=== PATIENT | female | born 1990 | race Hispanic/Latino ===

== ENCOUNTER 2018-03-06 22:17 | Emergency (ER) | payer OTHER ==
[2018-03-06 22:27] VITALS: BMI 25.0
[2018-03-06 22:29] VITALS: BP 123/81; PULSE 81; RESP 16; TEMP 97.7; O2SAT 100
--- NOTE | 2018-03-06 23:25 | ED PDOC ---
HPI: Female Pain Time Seen by Provider: 03/06/18 23:23 Chief Complaint (Nursing): Female Genitourinary Chief Complaint (Provider): vaginal spotting History Per: Patient (28 y/o female M1 here with crampy abd pain/vaginal spotting today. Patient has h/o miscarriage few months prior and is concerned for the same. Denies any dysuria/hematuria/urinary frequency.) Past Medical History Reviewed: Historical Data, Nursing Documentation, Vital Signs Vital Signs: Last Vital Signs Temp 97.7 F 03/06/18 22:27 Pulse 81 03/06/18 22:27 Resp 16 03/06/18 22:27 BP 123/81 03/06/18 22:27 Pulse Ox 100 03/06/18 22:27 - Family History Family History: States: No Known Family Hx - Allergies Allergies/Adverse Reactions: Allergies Allergy/AdvReac Type Severity Reaction Status Date / Time No Known Allergies Allergy Verified 03/06/18 22:26 Review of Systems ROS Statement: Except As Marked, All Systems Reviewed And Found Negative Genitourinary Female: Positive for: Vaginal Bleeding Physical Exam - Reviewed Nursing Documentation Reviewed: Yes Vital Signs Reviewed: Yes - Physical Exam Appears: Positive for: Well, Non-toxic, No Acute Distress Head Exam: Positive for: ATRAUMATIC, NORMAL INSPECTION, NORMOCEPHALIC Skin: Positive for: Normal Color, Warm, DRY Eye Exam: Positive for: EOMI, Normal appearance, PERRL ENT: Positive for: Normal ENT Inspection Neck: Positive for: Normal, Painless ROM Cardiovascular/Chest: Positive for: Regular Rate, Rhythm Respiratory: Positive for: CNT, Normal Breath Sounds Gastrointestinal/Abdominal: Positive for: Normal Exam, Soft Back: Positive for: Normal Inspection Extremity: Positive for: Normal ROM Neurologic/Psych: Positive for: Alert, Oriented - Laboratory Results Result Diagrams: 03/06/18 23:12 03/06/18 23:12 - ECG O2 Sat by Pulse Oximetry: 100 - Progress ED Course And Treament: Ultrasound pelvic: IMPRESSION: 1. Single intrauterine gestational sac with an estimated gestational age of 5 weeks 0 days. No pole is yet evident which is within normal limits for the gestational age. Mild undulating contour is nonspecific at this time however continued followup is recommended. Follow up ultrasound can be provided as clinically indicated. 2. Right ovarian thick walled cyst with internal debris likely a corpus luteum, with or without internal hemorrhage. 3. Small subchorionic hemorrhage. Disposition - Clinical Impression Clinical Impression: Subchorionic hemorrhage, Ovarian cyst, Threatened miscarriage - Patient ED Disposition Is Patient to be Admitted: No - Disposition Disposition: Routine/Home Disposition Time: 01:10 Condition: FAIR Additional Instructions: please f/u with your parking enforcement manager in 2 days. Instructions: Ovarian Cysts, Threatened Miscarriage Forms: [facility] ([place]), [facility] ED School/Work Excuse
[2018-03-06 23:34] LABS: BASO % 0.6 % (0.0-2.0); EOS # 0.4 K/uL (0.0-0.7); EOS % 5.2 % (0.0-4.0); HEMOGLOBIN 12.1 g/dL (12.0-16.0); LYMPH # 2.5 K/uL (1.0-4.3); LYMPH % 32.9 % (20.0-40.0); MEAN CELL VOLUME 88.4 fl (81.0-99.0); MEAN CORPUSCULAR HEMOGLOBIN 29.2 pg (27.0-31.0); MEAN CORPUSCULAR HGB CONC 33.1 g/dL (33.0-37.0); MEAN PLATELET VOLUME 10.3 fl (7.2-11.7); MONO # 0.5 K/uL (0.0-0.8); MONO % 7.1 % (0.0-10.0); NEUT # 4.2 K/uL (1.8-7.0); NEUT % 54.2 % (50.0-75.0); RBC 4.14 Mil/uL (3.80-5.20); RED CELL DISTRIBUTION WIDTH 13.5 % (11.5-14.5); WHITE BLOOD COUNT 7.7 K/uL (4.8-10.8)
[2018-03-06 23:43] LABS: ALB/GLOB RATIO 1.4 (1.0-2.1); ALBUMIN 4.4 g/dL (3.5-5.0); ALT/SGPT 36 U/L (9-52); AST/SGOT 26 U/L (14-36); BLOOD UREA NITROGEN 16 mg/dl (7-17); CALCIUM 9.7 mg/dL (8.4-10.2); GFR AFRICAN-AMERICAN > 60; GFR NON-AFRICAN AMERICAN > 60
--- NOTE | 2018-03-07 09:01 | US ---
PROCEDURE: OB Pelvic Ultrasound HISTORY: r/o ectopic LMP: 01/21/2018 COMPARISON: None available. FINDINGS: UTERUS: Gestational sac: Nonspecific mild undulating contour. Measures 1.0 cm compatible with estimated gestational age of 5 weeks, 0 days Yolk sac: Not identified pole: Not identified Hanny-gestational hemorrhage: Small subchorionic hemorrhage Date of delivery (Ultrasound estimated) : 11/06/2018 Uterus measures 7.4 x 5.0 x 4.5 cm. Anteverted. Normal in size and appearance. CERVIX: Long and closed. No cervical abnormality seen. RIGHT OVARY: Measures 3.7 x 5.0 x 3.8 cm. Thick-walled cystic structure with internal debris measuring 2.7 x 2.6 x 2.7 cm. Normal flow. LEFT OVARY: Measures 2.6 x 2.9 x 1.8 cm. No solid mass. Normal flow. FREE FLUID: None. OTHER FINDINGS: None. IMPRESSION: Single intrauterine gestational sac with nonspecific mild undulating contour and estimated ultrasound age 5 weeks 0 days. pole is not yet evident. Small subchorionic hemorrhage. Findings may represent early normal/ abnormal . Close clinical follow-up with serial pelvic sonography and serum beta HCG levels is recommended.
== END 2018-03-07 01:39 | disposition home or self-care (01) ==
LOC: H.ER 22:17
DX: O20.0 Threatened abortion (principal); O34.81 Maternal care for other abnormalities of pelvic organs, first trimester; N83.201 Unspecified ovarian cyst, right side; Z3A.01 Less than 8 weeks gestation of pregnancy